=== PATIENT | female | born 1960 | race Caucasian/White ===

== ENCOUNTER → 2020-04-29 | Outpatient (CLI) | payer BC | LOC: MAMMO 13:37 | DX: Z12.31 Encounter for screening mammogram for malignant neoplasm of breast (principal); N63.11 Unspecified lump in the right breast, upper outer quadrant; N63.21 Unspecified lump in the left breast, upper outer quadrant ==

== ENCOUNTER → 2020-05-11 | Outpatient (CLI) | payer BC | LOC: RAD 07:00 | DX: N63.11 Unspecified lump in the right breast, upper outer quadrant (principal); N63.21 Unspecified lump in the left breast, upper outer quadrant; N60.01 Solitary cyst of right breast; N60.02 Solitary cyst of left breast ==